=== PATIENT | female | born 2000 | race Two or more races ===

== ENCOUNTER 2024-01-22 09:25 | Emergency (ER) | payer MEDICAID ==
[~2024-01-22] VITALS: Ht 162.6 cm; Wt 59.0 kg
[2024-01-22 09:31] VITALS: O2SAT 100
[2024-01-22] MEDS ORDERED: CYCL10TA21 MT (09:54)
[2024-01-22 10:21] VITALS: BP 116/71; PULSE 87; RESP 18; TEMP 98.5
[2024-01-22] MEDS: CYCLOBENZAPRINE 10MG TABLET PO ONE (10:21)
== END 2024-01-22 10:26 | disposition home or self-care (01) ==
LOC: ER 09:53
DX: S39.012A Strain of muscle, fascia and tendon of lower back, initial encounter (principal); S16.1XXA Strain of muscle, fascia and tendon at neck level, initial encounter; V98.8XXA Other specified transport accidents, initial encounter; Y93.89 Activity, other specified; Y92.89 Other specified places as the place of occurrence of the external cause; Y99.8 Other external cause status
CPT/HCPCS: 81025; 99283